=== PATIENT | male | born 1975 | race Caucasian/White ===

== ENCOUNTER 2016-09-17 06:09 | Emergency (ER) | payer BC ==
[2016-09-17] MEDS ORDERED: DOXYcycline CAP(*) 100 MG PO ONE (07:21)
[2016-09-17 07:45] VITALS: BP 112/74
--- NOTE | 2016-09-17 08:39 | ED ---
Celine Hillman Auryana, scribed for Yamil Zepeda MD on 09/17/16 at 0725 . Bite Injury/Animal - HPI Summary HPI Summary: 41 year old male presents with tick bite to the left lateral side. He reports that he noticed it this morning and believes he was bitten yesterday. PMHx is significant for right shoulder surgery, cholecystectomy, vasectomy, and tonsillectomy. SHx is not significant for tobacco, alcohol, or recreational drugs. - History of Current Complaint Chief Complaint: EDRashSkinAbscess Stated Complaint: TICK ON LEFT SIDE Time Seen by Provider: 09/17/16 07:16 Hx Obtained From: Patient Onset of Injury: Happened days ago - yesterday, Still Present - noticed this morning Type of Bite: Animal - tick Has Animal Been Immunized?: N/A Severity Currently: None Pain Intensity: 0 Pain Scale Used: 0-10 Numeric Character: Puncture - tick bite Associated Signs And Symptoms: Positive: Negative - Allergies/Home Medications Allergies/Adverse Reactions: Allergies Allergy/AdvReac Type Severity Reaction Status Date / Time No Known Allergies Allergy Verified 09/17/16 06:37 PMH/Surg Hx/FS Hx/Imm Hx Endocrine/Hematology History: Denies: Hx Diabetes Cardiovascular History: Denies: Hx Congestive Heart Failure, Hx Hypertension GI History: Reports: Other GI Disorders - ulcer Musculoskeletal History: Reports: Other Musculoskeletal History - right shoulder - Surgical History Surgery Procedure, Year, and Place: gallbladder, tonsils,right shoulder Infectious Disease History: No Infectious Disease History: Denies: Traveled Outside the [place] in Last 30 Days - Family History Known Family History: Positive: Other - skin cancer - Social History Occupation: Employed Full-time Lives: With Family Alcohol Use: None Substance Use Type: Reports: None Smoking Status (MU): Never Smoked Tobacco Review of Systems Constitutional: Negative Eyes: Negative ENT: Negative Cardiovascular: Negative Respiratory: Negative Gastrointestinal: Negative Genitourinary: Negative Musculoskeletal: Negative Positive: Other - tick bite to the left flank. Negative: Rash Neurological: Negative Psychological: Normal All Other Systems Reviewed And Are Negative: Yes Physical Exam - Summary Physical Exam Summary: VITAL SIGNS: Reviewed. GENERAL: Patient is a well-developed and nourished male who is lying comfortable in the stretcher. Patient is not in any acute respiratory distress. LUNGS: Clear to auscultation bilaterally. No wheezing or crackles. CVS: Regular rate and rhythm, S1 and S2 present, no murmurs or gallops appreciated. SKIN: Dry and warm - positive tick in the left flank area Triage Information Reviewed: Yes Vital Signs On Initial Exam: Initial Vitals Temp Pulse Resp BP Pulse Ox 98.2 F 61 16 115/79 98 09/17/16 06:26 09/17/16 06:26 09/17/16 06:26 09/17/16 06:26 09/17/16 06:26 Vital Signs Reviewed: Yes Diagnostics - Vital Signs Vital Signs Temp Pulse Resp BP Pulse Ox 09/17/16 06:30 98.8 F 61 16 115/79 98 09/17/16 06:26 98.2 F 61 16 115/79 98 - Laboratory Lab Statement: Any lab studies that have been ordered have been reviewed, and results considered in the medical decision making process. Bite Injury Course/Dx - Course Assessment/Plan: 41 year old male presents with tick bite to the left lateral side. He reports that he noticed it this morning and believes he was bitten yesterday. PMHx is significant for right shoulder surgery, cholecystectomy, vasectomy, and tonsillectomy. SHx is not significant for tobacco, alcohol, or recreational drugs. Patient has a tick that was easily removed. Patient was given doxycycline as prophylaxis. Patient will follow up with PCP. Patient is hemodynamically stable and is A&Ox3 - Diagnoses Provider Diagnosis: Tick bite Discharge - Discharge Plan Condition: Stable Disposition: HOME Patient Education Materials: Tick Bite (ED) Referrals: Analisa Gilbert NP [Primary Care Provider] - 2 Days (Please follow up with your primary care physician.) The documentation as recorded by the Celine molina Auryana accurately reflects the service I personally performed and the decisions made by me, Yamil Zepeda MD.
== END 2016-09-17 07:44 | disposition home or self-care (01) ==
LOC: ED 06:09
DX: S30.861A Insect bite (nonvenomous) of abdominal wall, initial encounter (principal); R10.84 Generalized abdominal pain; W57.XXXA Bitten or stung by nonvenomous insect and other nonvenomous arthropods, initial encounter; Y93.9 Activity, unspecified; Y92.9 Unspecified place or not applicable; Y99.9 Unspecified external cause status
CPT/HCPCS: 99282; A9270-GY

== ENCOUNTER → 2018-03-07 22:19 | Emergency (ER) | payer BC ==
[~2018-03-07 22:19] MED LIST: Ibuprofen TAB* 800 MG PO ONE; oxyCODONE/Acetamin 5/325 MG* TAB PO ONE
--- NOTE | 2018-03-07 23:10 | ED ---
Upper Extremity Pain - HPI Summary HPI Summary: This pt is a 42 y/o male presenting to [facility] c/o right forearm and right shoulder pain s/p fall today. Pt reports today he slipped and fell on ice landing on his right forearm. Denies head strike or LOC. Pt denies sustaining any other injuries. Pt has hx of right rotator cuff surgery. Denies fever, chest pain, SOB, abd pain, headache. He has not taken any pain medications today. - History of Current Complaint Chief Complaint: EDExtremityUpper Stated Complaint: RT SHOULDER INJURY Hx Obtained From: Patient Mechanism Of Injury: Fall From A Standing Position Onset/Duration: Started Hours Ago, Still Present Timing: Lasting Hours Severity Currently: Moderate Pain Location: Shoulder - right, Forearm - right Character: Aching Aggravating Factor(s): Movement Alleviating Factor(s): Rest Associated Signs & Symptoms: Negative: Fever, Chest Pain, SOB, Neck Pain, Nausea , Vomiting Related History: Other: - hx of right rotator cuff surgery - Allergies/Home Medications Allergies/Adverse Reactions: Allergies Allergy/AdvReac Type Severity Reaction Status Date / Time No Known Allergies Allergy Verified 03/07/18 22:25 PMH/Surg Hx/FS Hx/Imm Hx Endocrine/Hematology History: Denies: Hx Diabetes Cardiovascular History: Denies: Hx Congestive Heart Failure, Hx Hypertension, Hx Pacemaker/ICD GI History: Reports: Other GI Disorders - ulcer Musculoskeletal History: Reports: Other Musculoskeletal History - right shoulder Sensory History: Denies: Hx Hearing Aid Psychiatric History: Denies: Hx Panic Disorder - Surgical History Surgery Procedure, Year, and Place: gallbladder,. tonsils,. right shoulder, rotator cuff. VASECTOMY Infectious Disease History: No Infectious Disease History: Denies: Traveled Outside the [place] in Last 30 Days - Family History Known Family History: Positive: Other - skin cancer - Social History Alcohol Use: Rare Substance Use Type: Reports: None Hx Tobacco Use: No Smoking Status (MU): Never Smoked Tobacco Review of Systems Negative: Fever, Chills Negative: Chest Pain Negative: Shortness Of Breath Negative: Abdominal Pain Musculoskeletal: Other - POS: Right shoulder pain, right forearm pain Negative: Headache All Other Systems Reviewed And Are Negative: Yes Physical Exam - Summary Physical Exam Summary: VITAL SIGNS: Reviewed. GENERAL: Patient is a well-developed and nourished male who is lying comfortable in the stretcher. Patient is not in any acute respiratory distress. HEAD AND FACE: No signs of trauma. No ecchymosis, hematomas or skull depressions. No sinus tenderness. EYES: PERRLA, EOMI x 2, No injected conjunctiva, no nystagmus. EARS: Hearing grossly intact. Ear canals and tympanic membranes are within normal limits. MOUTH: Oropharynx within normal limits. NECK: Supple, trachea is midline, no adenopathy, no JVD, no carotid bruit, no c- spine tenderness, neck with full ROM. CHEST: Symmetric, no tenderness at palpation LUNGS: Clear to auscultation bilaterally. No wheezing or crackles. CVS: Regular rate and rhythm, S1 and S2 present, no murmurs or gallops appreciated. ABDOMEN: Soft, non-tender. No signs of distention. No rebound no guarding, and no masses palpated. Bowel sounds are normal. EXTREMITIES: RUE: pain with right shoulder movement. NEURO: Alert and oriented x 3. No acute neurological deficits. Speech is normal and follows commands. SKIN: Dry and warm Triage Information Reviewed: Yes Vital Signs On Initial Exam: Initial Vitals Temp Pulse Resp BP Pulse Ox 97.8 F 68 16 139/89 95 03/07/18 22:20 03/07/18 22:20 03/07/18 22:20 03/07/18 22:20 03/07/18 22:20 Vital Signs Reviewed: Yes Diagnostics - Vital Signs Vital Signs Temp Pulse Resp BP Pulse Ox 03/07/18 22:20 97.8 F 68 16 139/89 95 - Laboratory Lab Statement: Any lab studies that have been ordered have been reviewed, and results considered in the medical decision making process. - Radiology Right shoulder XR Radiology Interpretation Completed By: ED Physician Summary of Radiographic Findings: XR is negative. Pending official radiology report. Re-Evaluation - Re-Evaluation First Eval Re-Evaluation Time: 23:40 Comment: I reviewed the XR results with pt. He is recommended to follow up with orthopedics. Course/Dx - Course Assessment/Plan: Pt is a 42 y/o male who presents to the ED for right forearm and right shoulder pain s/p fall today. Pt reports today he slipped and fell on ice landing on his right forearm. Denies head strike or LOC. Pt denies sustaining any other injuries. Pt has hx of right rotator cuff surgery. Denies fever, chest pain, SOB, abd pain, headache. He has not taken any pain medications today. In the ED course the pt was given motrin and percocet. Shoulder XR read by ED physician is negative. Pending official radiology report. Pt will be discharged home with follow up from orthopedics. Pt was placed in a sling prior to discharge. He was given a prescription for Motrin. Pt was instructed to return to the ED for any worsening and new symptoms. - Diagnoses Provider Diagnoses: Right shoulder pain Discharge - Sign-Out/Discharge Documenting (check all that apply): Patient Departure - Discharge home - Discharge Plan Condition: Stable Disposition: HOME Prescriptions: Ibuprofen TAB* [Motrin TAB* 800 MG] 800 mg PO Q6H PRN #30 tab PRN Reason: Pain Patient Education Materials: Shoulder Pain (ED) Forms: *Work Release Referrals: Rosalinda Sutherland MD [Primary Care Provider] - Lucas Orozco MD [Medical Doctor] - Additional Instructions: Wear the sling for comfort. Please follow up with Dr. Orozco, orthopedist. RETURN TO EMERGENCY DEPARTMENT FOR ANY NEW OR WORSENING SYMPTOMS. - Attestation Statements Document Initiated by Scribe: Yes Documenting Scribe: Alexsandra Watkins Provider For Whom Scribe is Documenting (Include Credential): Alix Fregoso MD Scribe Attestation: Alexsandra Hillman, scribed for Alix Fregoso MD on 03/08/18 at 0028.
[2018-03-07 23:53] VITALS: BP 0/0
--- NOTE | 2018-03-08 07:39 | PN ---
Progress Note - Progress Note Date of Service: 03/08/18 Note: radiology official report: IMPRESSION: THE ACROMIOCLAVICULAR JOINT MEASURES 1.5 CM IN DIAMETER CONSISTENT WITH A GRADE 1 AC SEPARATION INJURY. spoke with patient and told of results. told to follow up with ortho or primary and to use sling for comfort
== END | disposition home or self-care (01) ==
LOC: ED 22:19
DX: M25.511 Pain in right shoulder (principal)
CPT/HCPCS: 99282; A9270-GY

== ENCOUNTER 2018-06-11 00:59 | Emergency (ER) | payer OTHER ==
[2018-06-11] MEDS ORDERED: Cephalexin CAP* 500 MG PO ONE (02:03)
[2018-06-11] MEDS ORDERED: Tetan/Diph/Pertus SYR(Tdap)* 0.5 ML SYR(BOOSTRIX) use SYR IM ONE (02:03)
[2018-06-11 02:42] VITALS: BP 132/75
--- NOTE | 2018-06-11 05:32 | ED ---
Laceration/Wound HPI - HPI Summary HPI Summary: The patient is a 42 year old male who is presenting to the [facility] with a chief complaint of a left index finger laceration. The patient was reportedly at work where he his finger "got caught between a Marcos and a Shemar" causing the laceration. The onset of when his finger became caught in the machinery at work was at 0800. After the laceration, the patient states the finger was "oozing." After the injury, the patient washed out the wound and wrapped around the wound with two bandaids. The wound was bleeding profusely at the onset of the injury. Patient is unsure when the last tetanus shot was. The patient is not in any pain distress. The pain is rated to be 3/10 in severity. Symptoms alleviated by nothing. Symptoms aggravated by nothing. - History of Current Complaint Stated Complaint: LT FINGER LAC Time Seen by Provider: 06/11/18 02:00 Hx Obtained From: Patient Onset/Duration: Sudden Onset Aggravating: Nothing Alleviating: Nothing Onset Severity: Mild Current Severity: Mild Pain Intensity: 3 Pain Scale Used: 0-10 Numeric - Allergy/Home Medications Allergies/Adverse Reactions: Allergies Allergy/AdvReac Type Severity Reaction Status Date / Time No Known Allergies Allergy Verified 06/11/18 01:03 PMH/Surg Hx/FS Hx/Imm Hx Endocrine/Hematology History: Denies: Hx Diabetes Cardiovascular History: Denies: Hx Congestive Heart Failure, Hx Hypertension, Hx Pacemaker/ICD GI History: Reports: Other GI Disorders - ulcer Musculoskeletal History: Reports: Other Musculoskeletal History - right shoulder Sensory History: Denies: Hx Hearing Aid Psychiatric History: Denies: Hx Panic Disorder - Surgical History Surgery Procedure, Year, and Place: gallbladder,. tonsils,. right shoulder, rotator cuff. VASECTOMY - Immunization History Date of Tetanus Vaccine: unk Date of Influenza Vaccine: none Infectious Disease History: No Infectious Disease History: Denies: Traveled Outside the [place] in Last 30 Days - Family History Known Family History: Positive: Other - skin cancer Family History: Negative IBD - Social History Occupation: Employed Full-time Lives: With Family Alcohol Use: Rare Substance Use Type: Reports: None Hx Tobacco Use: No Smoking Status (MU): Never Smoked Tobacco Review of Systems Constitutional: Negative Eyes: Negative ENT: Negative Cardiovascular: Negative Respiratory: Negative Gastrointestinal: Negative Genitourinary: Negative Musculoskeletal: Other - right index finger pain Skin: Other - right index finger laceration with bleeding at onset Neurological: Negative Psychological: Normal All Other Systems Reviewed And Are Negative: Yes Physical Exam - Summary Physical Exam Summary: VITAL SIGNS: Reviewed. GENERAL: Patient is a well-developed and nourished (MALE) who is lying comfortable in the stretcher. Patient is not in any acute respiratory distress. HEAD AND FACE: No signs of trauma. No ecchymosis, hematomas or skull depressions. No sinus tenderness. EYES: PERRLA, EOMI x 2, No injected conjunctiva, no nystagmus. EARS: Hearing grossly intact. Ear canals and tympanic membranes are within normal limits. MOUTH: Oropharynx within normal limits. NECK: Supple, trachea is midline, no adenopathy, no JVD, no carotid bruit, no c- spine tenderness, neck with full ROM. CHEST: Symmetric, no tenderness at palpation LUNGS: Clear to auscultation bilaterally. No wheezing or crackles. CVS: Regular rate and rhythm, S1 and S2 present, no murmurs or gallops appreciated. ABDOMEN: Soft, non-tender. No signs of distention. No rebound no guarding, and no masses palpated. Bowel sounds are normal. EXTREMITIES: tenderness of the left index finger; NEURO: Alert and oriented x 3. No acute neurological deficits. Speech is normal and follows commands. SKIN: No active bleeding Triage Information Reviewed: Yes Vital Signs On Initial Exam: Initial Vitals Temp Pulse Resp BP Pulse Ox 97.5 F 69 16 134/83 97 06/11/18 01:01 06/11/18 01:01 06/11/18 01:01 06/11/18 01:01 06/11/18 01:01 Vital Signs Reviewed: Yes Diagnostics - Vital Signs Vital Signs Temp Pulse Resp BP Pulse Ox 06/11/18 02:41 98.4 F 70 16 132/75 97 06/11/18 01:01 97.5 F 69 16 134/83 97 - Laboratory Lab Statement: Any lab studies that have been ordered have been reviewed, and results considered in the medical decision making process. Laceration Repair Course/Dx - Course Course Of Treatment: The patient is a 42 year old male who is presenting to the [facility] with a chief complaint of right index finger laceration. The injury occured more than 12 hours prior to [facility] arrival (onset at 0800) and thus the wound can not be sultured. We recommended a prescription for antibiotics and recieving a tetanus shot as well as a wrap to cover the wound for the patient. The patient is aggreable to this plan. The patient will be discharged home with a dx of right index finger laceration. The patient will follow up with his primary care physician within 1 to 2 days. - Clinical Impression Provider Diagnoses: Laceration of right index finger Discharge - Sign-Out/Discharge Documenting (check all that apply): Patient Departure - Discharge Home Patient Received Moderate/Deep Sedation with Procedure: No - Discharge Plan Condition: Stable Disposition: HOME Prescriptions: Cephalexin CAP* [Keflex CAP*] 500 mg PO QID #30 cap Patient Education Materials: Finger Laceration (ED) Referrals: Rosalinda Sutherland MD [Primary Care Provider] - Additional Instructions: RETURN TO THE EMERGENCY DEPARTMENT FOR CHANGING OR WORSENING SYMPTOMS. FOLLOW UP WITH Primary care physician IN 1-2 DAYS. - Attestation Statements Document Initiated by Scribe: Yes Documenting Scribe: Sandro Reddy Provider For Whom Scribe is Documenting (Include Credential): Dr. Alix Fregoso Scribe Attestation: Sandro Hillman, scribed for Dr. Alix Fregoso on 06/11/18 at 0542. Status of Scribe Document: Ready
== END 2018-06-11 02:41 | disposition home or self-care (01) ==
LOC: ED 00:59
DX: S61.211A Laceration without foreign body of left index finger without damage to nail, initial encounter (principal); W31.2XXA Contact with powered woodworking and forming machines, initial encounter; Y92.9 Unspecified place or not applicable; Z23 Encounter for immunization; Y99.0 Civilian activity done for income or pay
CPT/HCPCS: 90471; 90715; 99282; A9270-GY

== ENCOUNTER 2022-10-06 15:51 | Observation (INO) ==
[~2022-10-06 15:51] MED LIST changes: +Buffered Lidocaine 1% SYRIN 1 ml INTRADERM ONE; +Bupivacaine 0.25% w/EPI 10 ML SDV ONE; +Famotidine IV 10 MG/ML 2 ml VIAL (20 mg) IV ONE; -Ibuprofen TAB* 800 MG PO ONE; +Lactated Ringers 1000 ml BAG 1,000 ML IV SCH; -oxyCODONE/Acetamin 5/325 MG* TAB PO ONE
[2022-10-06] MEDS ORDERED: ceFAZolin 2 GM in NS PREMIX 2 GM/100 ML BAG IVPB ONE (16:07)
[2022-10-06] MEDS ORDERED: Rocuronium 50 mg VIAL 10 mg/ml 5 ml VIAL (50 mg) ONE (16:26)
[2022-10-06] MEDS ORDERED: Midazolam 2 mg/2 ml VIAL 1 mg/ml 2 ml VIAL (2 mg) ONE ×2 (16:27→17:13)
[2022-10-06] MEDS ORDERED: fentaNYL 250 mcg/5 ml 50 MCG/ML 5 ml VIAL (250 MCG) ONE (16:27)
[2022-10-06] MEDS ORDERED: Propofol 10 MG/ML 20 ML BTL ONE ×2 (16:29→16:30)
[2022-10-06] MEDS ORDERED: Lidocaine 2% PF 5 ML VIAL ONE (17:13)
[2022-10-06] MEDS ORDERED: Dexamethasone IV 4 MG/ML VIAL 1 ml VIAL ONE (18:28)
[2022-10-06] MEDS ORDERED: Acetaminophen IV 1 GM/100ML 1,000 MG/100 ML BAG IV ONE (18:50)
[2022-10-06] MEDS ORDERED: fentaNYL 100 mcg/2 ml 50 MCG/ML VIAL IV PRN (18:54)
[2022-10-06] MEDS ORDERED: Ondansetron 4 mg VIAL 2 MG/ML 2 ml VIAL IV PRN (18:54)
[2022-10-06] MEDS ORDERED: HYDROcodone/ACETAMIN 5/325 mg TAB PO PRN (18:54)
[2022-10-06] MEDS ORDERED: Naloxone 0.4 mg VIAL 0.4 mg/ml 1 ml VIAL IV PRN (18:54)
[2022-10-06] MEDS ORDERED: Ondansetron 4 mg VIAL 2 MG/ML 2 ml VIAL ONE (20:59)
[2022-10-06] MEDS ORDERED: HYDROmorphone 1 MG/1 ML SYRINGE ONE (22:42)
[2022-10-06] MEDS: HYDROmorphone 1 MG/1 ML SYRINGE IV PRN ×2 (22:48→23:06)
[2022-10-06] MEDS ORDERED: fentaNYL 100 mcg/2 ml 50 MCG/ML VIAL ONE (23:24)
[2022-10-07] MEDS ORDERED: oxyCODONE/Acetamin 5/325 mg TAB PO PRN
[2022-10-07] MEDS ORDERED: Morphine 2 MG/ML SYRINGE IV PRN (00:13)
[2022-10-07 10:16] VITALS: BP 117/70
== END 2022-10-07 10:58 | disposition home or self-care (01) ==
LOC: SSU 15:51 → OR 15:51
PROVIDERS: ADMIT Orthopaedic Surgery Sports Medicine; ATTEND Orthopaedic Surgery Sports Medicine